=== PATIENT | female | born 1970 | race Caucasian/White ===

== ENCOUNTER 2024-01-21 11:44 | Emergency (ER) | payer OTHER ==
[~2024-01-21] VITALS: Ht 167.6 cm; Wt 81.8 kg
[~2024-01-21 11:44] MED LIST: NOCURR
[2024-01-21 12:02] VITALS: TEMP 98
[2024-01-21] MEDS: KETOROLAC TROMETHAMINE 30 MG/ML VIAL IVP ONE (13:37)
[2024-01-21] MEDS: CefTRIAXone 1 GM/DEXTROSE 50 ML IV ONE (13:37)
[2024-01-21] MEDS ORDERED: CEPH-558 PO (14:12)
[2024-01-21] MEDS ORDERED: HYDR-4062 PO (14:12)
[2024-01-21] MEDS ORDERED: SULF-261 PO (14:12)
[2024-01-21 14:21] VITALS: BP 128/82; PULSE 93; RESP 16
== END 2024-01-21 15:32 | disposition home or self-care (01) ==
LOC: EMS 11:45
DX: L02.213 Cutaneous abscess of chest wall (principal); F17.210 Nicotine dependence, cigarettes, uncomplicated
CPT/HCPCS: 99284; 96365; 96375; J0696; J1885